=== PATIENT | male | born 1960 | race Caucasian/White ===

== ENCOUNTER 2020-02-04 10:56 | Inpatient (IN) | payer OTHER, SELFPAY ==
[~2020-02-04] VITALS: Ht 177.8 cm; Wt 89.2 kg
[2020-02-04 11:45] LABS: PLATELET COUNT 143 x10^3mcL (130-400); RED CELL DISTRIBUTION WIDTH 13.9 % (11.5-14.5)
[2020-02-04 11:59] LABS: ALKALINE PHOSPHATASE 56 U/L (46-116); ALT/SGPT 28 U/L (16-63); AST/SGOT 35 U/L (15-37); BASOPHIL % 0 % (0-2); BILIRUBIN TOTAL 0.6 mg/dL (0.20-1.00); C REACTIVE PROTEIN 5.6 mg/dL (<=0.9); CALCIUM 7.9 mg/dL (8.5-10.1); CARBON DIOXIDE 30.5 mmol/L (21-32); CHLORIDE SERUM 92 mmol/L (98-107); CREATININE SERUM 1.2 mg/dL (0.7-1.3); GFR1 > 60 mL/min; GLUCOSE SERUM 115 mg/dL (74-106); LACTIC DEHYDROGENASE (LDH) 348 U/L (100-190); SODIUM SERUM 133 mmol/L (136-145); TOTAL PROTEIN, SERUM 7.2 g/dL (6.4-8.2)
[2020-02-04 12:03] LABS: ALBUMIN 2.9 g/dL (3.4-5.0); POTASSIUM SERUM 2.4 mmol/L (3.5-5.1)
[2020-02-04 14:14] LABS: UA SPECIFIC GRAVITY 1.025 (1.005-1.035)
[2020-02-04 14:15] LABS: microscopic required? YES; urine erythrocyte 2+ (NEGATIVE)
[2020-02-04 14:33] VITALS: BP 112/69
[2020-02-04 14:42] VITALS: Ht 177.8 cm; Wt 89.2 kg
[2020-02-04 16:01] VITALS: BP 110/66
[2020-02-04 22:41] VITALS: BP 122/70
[2020-02-05 05:52] VITALS: BP 116/57
[2020-02-05 07:03] LABS: CALCIUM 8.1 mg/dL (8.5-10.1); CARBON DIOXIDE 29.7 mmol/L (21-32); CHLORIDE SERUM 94 mmol/L (98-107); CREATININE SERUM 1.2 mg/dL (0.7-1.3); GFR1 > 60 mL/min; GLUCOSE SERUM 103 mg/dL (74-106); SODIUM SERUM 134 mmol/L (136-145)
[2020-02-05 07:11] LABS: BASOPHIL % 0.1 % (0-2); PLATELET COUNT 149 x10^3mcL (130-400); RED CELL DISTRIBUTION WIDTH 13.8 % (11.5-14.5)
[2020-02-05 07:13] LABS: POTASSIUM SERUM 2.6 mmol/L (3.5-5.1)
[2020-02-05 08:00] VITALS: BP 102/50
[2020-02-05 13:03] VITALS: BP 106/69
[2020-02-05 17:50] VITALS: BP 102/67
[2020-02-05 20:30] VITALS: BP 118/58
[2020-02-06 05:55] VITALS: BP 101/59
[2020-02-06 06:49] LABS: PLATELET COUNT 188 x10^3mcL (130-400); RED CELL DISTRIBUTION WIDTH 13.8 % (11.5-14.5)
[2020-02-06 06:52] LABS: BASOPHIL % 0 % (0-2)
[2020-02-06 07:17] LABS: CARBON DIOXIDE 29.5 mmol/L (21-32); CHLORIDE SERUM 91 mmol/L (98-107); CREATININE SERUM 1.2 mg/dL (0.7-1.3); GFR1 > 60 mL/min; GLUCOSE SERUM 101 mg/dL (74-106); SODIUM SERUM 132 mmol/L (136-145)
[2020-02-06 07:20] LABS: POTASSIUM SERUM 2.7 mmol/L (3.5-5.1)
[2020-02-06 08:30] VITALS: BP 100/44
[2020-02-06 12:39] VITALS: BP 128/71
[2020-02-06 13:16] VITALS: BP 128/71
[2020-02-06 17:01] VITALS: BP 100/56
[2020-02-06 19:30] VITALS: BP 112/62
[2020-02-07 06:33] VITALS: BP 109/64
[2020-02-07 08:52] VITALS: BP 109/64
[2020-02-07 12:45] VITALS: BP 104/67; BP 126/42
[2020-02-07 17:37] VITALS: BP 106/55
[2020-02-07 20:00] VITALS: BP 97/64
[2020-02-08 05:01] VITALS: BP 102/65
[2020-02-08 06:33] LABS: BASOPHIL % 0.1 % (0-2); PLATELET COUNT 178 x10^3mcL (130-400); RED CELL DISTRIBUTION WIDTH 13.8 % (11.5-14.5)
[2020-02-08 06:52] LABS: CHLORIDE SERUM 93 mmol/L (98-107); CREATININE SERUM 1.1 mg/dL (0.7-1.3); GFR1 > 60 mL/min; GLUCOSE SERUM 96 mg/dL (74-106); POTASSIUM SERUM 3.2 mmol/L (3.5-5.1); SODIUM SERUM 132 mmol/L (136-145)
[2020-02-08 08:23] VITALS: BP 104/66
[2020-02-08 20:30] VITALS: BP 100/54
[2020-02-09 05:37] VITALS: BP 113/60
[2020-02-09 07:00] LABS: BASOPHIL % 0.1 % (0-2); PLATELET COUNT 187 x10^3mcL (130-400); RED CELL DISTRIBUTION WIDTH 13.6 % (11.5-14.5)
[2020-02-09 07:29] LABS: C REACTIVE PROTEIN 8.6 mg/dL (<=0.9); CALCIUM 8.6 mg/dL (8.5-10.1); CARBON DIOXIDE 29.7 mmol/L (21-32); CHLORIDE SERUM 95 mmol/L (98-107); GFR1 > 60 mL/min; GLUCOSE SERUM 96 mg/dL (74-106); POTASSIUM SERUM 3.5 mmol/L (3.5-5.1); SODIUM SERUM 136 mmol/L (136-145)
[2020-02-09 09:18] VITALS: BP 109/67
[2020-02-09 12:41] VITALS: BP 110/69
[2020-02-09 16:50] VITALS: BP 114/71
[2020-02-09 20:32] VITALS: BP 114/71
[2020-02-10 05:55] VITALS: BP 119/78
[2020-02-10 07:17] LABS: PLATELET COUNT 194 x10^3mcL (130-400)
[2020-02-10 07:21] LABS: CALCIUM 8.4 mg/dL (8.5-10.1); CHLORIDE SERUM 97 mmol/L (98-107); CREATININE SERUM 0.8 mg/dL (0.7-1.3); GFR1 > 60 mL/min; GLUCOSE SERUM 139 mg/dL (74-106); POTASSIUM SERUM 3.1 mmol/L (3.5-5.1); SODIUM SERUM 138 mmol/L (136-145)
[2020-02-10 08:37] VITALS: BP 113/70
[2020-02-10 11:30] LABS: BAND NEUTROPHIL 2 % (0-10); BASOPHIL 0 % (0-2); MONOCYTE 6 % (0-7); SEGMENTED NEUTROPHILS 78 % (37-75); rbc morphology (normal/abnorm) ABNORMAL (NORMAL); tear drop cell (dacryocyte) 1+
[2020-02-10 11:31] LABS: PLATELET MORPHOLOGY GIANT PLATELET SEEN
[2020-02-10 14:20] VITALS: BP 120/79
[2020-02-10 17:37] VITALS: BP 115/78
[2020-02-10 21:29] VITALS: BP 112/72
[2020-02-11 05:30] VITALS: BP 104/65
[2020-02-11 06:50] LABS: PLATELET COUNT 247 x10^3mcL (130-400); RED CELL DISTRIBUTION WIDTH 13.4 % (11.5-14.5)
[2020-02-11 07:02] LABS: CALCIUM 8.4 mg/dL (8.5-10.1); CARBON DIOXIDE 33.5 mmol/L (21-32); CHLORIDE SERUM 98 mmol/L (98-107); CREATININE SERUM 0.9 mg/dL (0.7-1.3); GFR1 > 60 mL/min; GLUCOSE SERUM 129 mg/dL (74-106); POTASSIUM SERUM 3.3 mmol/L (3.5-5.1); SODIUM SERUM 137 mmol/L (136-145)
[2020-02-11 09:17] VITALS: BP 107/73
[2020-02-11 10:27] LABS: BAND NEUTROPHIL 2 % (0-10); MONOCYTE 6 % (0-7); SEGMENTED NEUTROPHILS 82 % (37-75)
[2020-02-11 10:32] LABS: rbc morphology (normal/abnorm) ABNORMAL (NORMAL)
[2020-02-11 10:33] LABS: ovalocyte/elliptocyte 1+
[2020-02-11 13:13] VITALS: BP 112/72
[2020-02-11 17:50] VITALS: BP 107/69
[2020-02-11 21:12] VITALS: BP 122/72
[2020-02-12 05:54] VITALS: BP 112/71
[2020-02-12 07:07] LABS: BASOPHIL % 0.1 % (0-2); PLATELET COUNT 251 x10^3mcL (130-400); RED CELL DISTRIBUTION WIDTH 13.7 % (11.5-14.5)
[2020-02-12 07:19] LABS: CALCIUM 8.2 mg/dL (8.5-10.1); CARBON DIOXIDE 31.4 mmol/L (21-32); CHLORIDE SERUM 100 mmol/L (98-107); CREATININE SERUM 0.8 mg/dL (0.7-1.3); GFR1 > 60 mL/min; GLUCOSE SERUM 114 mg/dL (74-106); POTASSIUM SERUM 3.7 mmol/L (3.5-5.1); SODIUM SERUM 138 mmol/L (136-145)
[2020-02-12 09:50] VITALS: BP 113/67
[2020-02-12 13:00] VITALS: BP 123/76
[2020-02-12 17:39] VITALS: BP 123/76
[2020-02-12 18:00] VITALS: BP 119/76
[2020-02-12 20:58] VITALS: BP 117/68
[2020-02-13 05:12] VITALS: BP 105/75
[2020-02-13 08:00] VITALS: BP 103/73
[2020-02-13 13:02] VITALS: BP 114/76
[2020-02-13 16:50] VITALS: BP 120/78
[2020-02-14 05:20] VITALS: BP 116/75
[2020-02-14 08:33] VITALS: BP 124/79
[2020-02-14 13:23] VITALS: BP 117/83
[2020-02-14 17:02] VITALS: BP 119/74
[2020-02-14 20:09] VITALS: BP 133/75
[2020-02-15 07:27] VITALS: BP 87/60
[2020-02-15 07:37] LABS: BASOPHIL % 0.2 % (0-2); PLATELET COUNT 219 x10^3mcL (130-400); RED CELL DISTRIBUTION WIDTH 14.1 % (11.5-14.5)
[2020-02-15 07:44] LABS: CALCIUM 8.6 mg/dL (8.5-10.1); CARBON DIOXIDE 32.5 mmol/L (21-32); CHLORIDE SERUM 101 mmol/L (98-107); CREATININE SERUM 0.9 mg/dL (0.7-1.3); GFR1 > 60 mL/min; GLUCOSE SERUM 89 mg/dL (74-106); SODIUM SERUM 139 mmol/L (136-145)
[2020-02-15 08:31] VITALS: BP 112/77
[2020-02-15 13:02] VITALS: BP 100/69
[2020-02-15 17:10] VITALS: BP 106/72
[2020-02-15 21:47] VITALS: BP 125/73
[2020-02-16 06:26] VITALS: BP 106/63
[2020-02-16 09:54] VITALS: BP 113/70
[2020-02-16 13:41] VITALS: BP 110/70
[2020-02-16 16:58] VITALS: BP 107/68
[2020-02-16 21:43] VITALS: BP 112/70
[2020-02-17] VITALS (7 sets, daily range): BP systolic 102–119; BP diastolic 66–77
[2020-02-18 05:35] VITALS: BP 104/66
[2020-02-18 21:16] VITALS: BP 114/74
[2020-02-19 05:56] VITALS: BP 97/64
[2020-02-19 08:43] VITALS: BP 104/64
[2020-02-19 11:45] VITALS: BP 104/64
[2020-02-19 13:12] VITALS: BP 110/70
== END 2020-02-19 13:25 | disposition other institution (70) | DRG 177 ==
LOC: ED 10:56 → DU 12:36
PROVIDERS: Emergency Medicine; ADMIT Internal Medicine; ATTEND Internal Medicine
PROC: 30233K1 Transfusion of Nonautologous Frozen Plasma into Peripheral Vein, Percutaneous Approach (ICD-10-PCS; principal; 2020-02-08)
DX: U07.1 COVID-19 (principal); J96.21 Acute and chronic respiratory failure with hypoxia; J12.89 Other viral pneumonia; C34.90 Malignant neoplasm of unspecified part of unspecified bronchus or lung; E87.1 Hypo-osmolality and hyponatremia; E87.6 Hypokalemia; I10 Essential (primary) hypertension; J44.9 Chronic obstructive pulmonary disease, unspecified
CPT/HCPCS: 36600; 83880; 85378; 87804; 94150; G0378; J0456; J0696; J1650; J2920; J3490; J3535; J7040; J7050; J7060; J7512; Q0092; U0003-CS